=== PATIENT | female | born 1970 | race Caucasian/White ===

== ENCOUNTER → 2024-09-20 | Outpatient (REF) | payer OTHER | LOC: US 09:11 | PROVIDERS: ATTEND Internal Medicine | DX: M54.2 Cervicalgia (principal) | CPT/HCPCS: 76536 ==

== ENCOUNTER → 2024-09-25 | Outpatient (REF) | payer OTHER | LOC: RAD 10:34 | PROVIDERS: ATTEND Internal Medicine Gastroenterology | DX: M79.641 Pain in right hand (principal); M79.642 Pain in left hand ==